=== PATIENT | female | born 2000 | race Caucasian/White ===

== ENCOUNTER 2024-11-23 12:52 | Outpatient (CLI) | payer OTHER, SELFPAY ==
--- NOTE | 2024-11-23 13:00 | CRLHL7_ITS ---
For Patients: As a result of the Cures Act, medical imaging exams and procedure reports are released immediately into your electronic medical record. You may view this report before your referring provider. If you have questions, please contact your health care provider. OBSTETRICAL ULTRASOUND TRANSABDOMINAL, 11/23/2024 CLINICAL INDICATION: Dating and viability. LMP: 09/06/2024 CRIS by LMP: 06/13/2025 Gestational age: 11 weeks 1 day Previous ultrasound: Yes ([facility]) TECHNIQUE: Real-time flores-scale imaging of the fetus was performed transabdominal. FINDINGS: CRL: 4.7 cm, 11 weeks 3 days; CRIS 06/11/2025 heart rate: 161 BPM Gestational sac: 5.2 cm, appears within normal limits Yolk sac: Not visualized Right ovary: 3.7 x 1.8 x 2.4 cm Left ovary: Not visualized IMPRESSION: Single living intrauterine measuring 11 weeks 3 days with sonographic due date of 06/11/2025. JUANCARLOS BAH M.D. Diagnostic Radiologist [email or web address] Transcribed: 4:[address]/Dictated by: Juancarlos Bah MD @ 11/23/2024 2:58:00 PM (Electronically Signed)
== END 2024-11-23 12:53 | disposition home or self-care (01) ==
LOC: US 12:56
PROVIDERS: Visit Provider Registered Nurse
DX: Z34.91 Encounter for supervision of normal pregnancy, unspecified, first trimester (principal); Z3A.11 11 weeks gestation of pregnancy
CPT/HCPCS: 76801

== ENCOUNTER 2025-01-11 09:13 | Outpatient (CLI) | payer OTHER, SELFPAY ==
--- NOTE | 2025-01-11 09:15 | CRLHL7_ITS ---
For Patients: As a result of the Century Cures Act, medical imaging exams and procedure reports are released immediately into your electronic medical record. You may view this report before your referring provider. If you have questions, please contact your health care provider. OB ULTRASOUND SURVEY LMP: 09/06/2024. CRIS by LMP: 06/13/2025. GA: 18 w, 1 d. INDICATION: scan. TECHNIQUE: Real time grayscale imaging of the fetus was performed. Evaluate anatomy. Transabdominal imaging performed. position: Breech. Cervix: Visualized. Technique: Transabdominal. Length of closed cervix: 3.2 cm. Placenta/cord: Anterior. Technique: Transabdominal. Placenta tip to internal OS: 5.4 cm. Umbilical Cord: 3-vessel cord. Placenta insertion: Central. Amniotic Fluid: 5.2 cm SDP (greater than/equal to: 2- less than 8 cm). SURVEY: Observed Structures. Calvarium/Spine: Cerebellum: 1.80 cm, 18 w 5 d. Cisterna Magna: 6.4 mm. Nuchal Fold: 4.1 mm. Lateral Ventricle: 5.7 mm. CSP: Yes. Midline Falx: Yes. Choroid Plexus: Yes. Spine: Yes. Abdomen: Stomach: Yes. Abd Cord Insertion: Yes. Urinary Bladder: Yes. Kidneys: Yes. Diaphragm: Yes. Face: Nose/lips: Yes. Orbital view: Yes. Profile: See impression. Limbs: Upper Extremities: Yes. Lower Extremities: Yes. Hands: Yes. Feet: See impression. Vascular: 4-Chamber Heart: See impression. LVOT: See impression. RVOT: See impression. 3VV: See impression. 3VTV: Yes. BPD: 3.8 cm. 17 w, 4 d, 24.8%. HC: 14.5 cm. 17 w, 5 d, 21.7%. AC: 12.5 cm. 18 w, 1 d, 44.8%. FL: 2.7 cm. 18 w, 1 d, 42.4%. FL/AC ratio: 21.4%. HC/AC ratio: 1.2. heart rate: 142 bpm. age by this US: 18 w, 0 d. CRIS by this US: 06/14/2025. EFW: 220.9g. Weight: 8 oz. Percentile by CRIS: 38.3%. IMPRESSION: 1. Incomplete visualization of the profile, feet, four-chamber heart, LVOT, RVOT, and three-vessel view. 2. Concordance of clinical and sonographic dating. 3. Short-term follow-up recommended. Juancarlos Castellon M.D. Diagnostic Radiologist [email or web address] by: Juancarlos Castellon MD @ 01/11/2025 12:07:00 PM (Electronically Signed)
== END 2025-01-11 09:14 | disposition home or self-care (01) ==
LOC: US 09:14
PROVIDERS: Visit Provider Advanced Practice Midwife
DX: O35.BXX0 Maternal care for other (suspected) fetal abnormality and damage, fetal cardiac anomalies, not applicable or unspecified (principal); Z3A.18 18 weeks gestation of pregnancy
CPT/HCPCS: 76805

== ENCOUNTER 2025-02-22 09:16 | Outpatient (CLI) | payer OTHER, SELFPAY ==
--- NOTE | 2025-02-22 09:15 | CRLHL7_ITS ---
For Patients: As a result of the Century Cures Act, medical imaging exams and procedure reports are released immediately into your electronic medical record. You may view this report before your referring provider. If you have questions, please contact your health care provider. OB ULTRASOUND FOLLOW-UP Clinical History: CRIS by LMP: 06/13/2025. GA: 24 w, 1 d. Single. Comparison: US 01/11/2025. INDICATION: Missing anatomy views of face, feet, heart views. TECHNIQUE: Real time flores scale imaging of the fetus was performed. Transabdominal imaging performed. CERVIX: Not visualized. POSITIONING: Breech. AMNIOTIC FLUID: 7.2 cm SDP (N: greater than 2 x 1 cm) PLACENTA: Technique: Transabdominal. PLACENTA POSITION: Anterior. DOPPLER: heart rate: 155 bpm. IMPRESSION: Normal face, profile, four-chamber heart, LVOT, RVOT, three-vessel view, three-vessel trachea view, nose, lips and feet. Juancarlos Castellon M.D. Diagnostic Radiologist [email or web address] SP/Dictated by: Juancarlos Castellon MD @ 02/22/2025 10:32:00 AM (Electronically Signed)
== END 2025-02-22 09:17 | disposition home or self-care (01) ==
LOC: US 09:17
PROVIDERS: Visit Provider Advanced Practice Midwife
DX: Z36.2 Encounter for other antenatal screening follow-up (principal)
CPT/HCPCS: 76816